=== PATIENT | female | born 1995 | race Hispanic/Latino ===

== ENCOUNTER → 2021-11-27 | Day surgery (SDC) | payer OTHER ==
[~2021-11-27] MED LIST: CYCLOBENZAPRINE10 MG PO; DEXAMETHASONE SOD PHOS INJ 4 MG/ML SDV ONE; FENTANYL CITRATE/PF 100MCG/2 ML INJ ONE; IBUPROFEN200 MG PO; KETOROLAC TROMETHAMINE 30 MG/ML VIAL ONE; LIDOCAINE HCL 2% LOCAL INJ 5 ML SDV VIAL INJ ONE; METOCLOPRAMIDE HCL 10 MG/2ML VIAL ONE; MIDAZOLAM HCL 2 MG/2 ML VIAL ONE; ONDANSETRON HCL INJ 2MG/ML 2ML 2 MG/ML VIAL ONE; POVIDONE IODINE 0.05% 0.05 % ML PO ONE; PROPOFOL IV EMULSION 10 MG/ML 20 ML VIAL ONE; SEVOFLURANE INHAL SOLN 250 ML PEN BTL ONE; ULTRAM50 MG PO
[2021-11-27 14:35] VITALS: BP 119/86
== END | disposition home or self-care (01) ==
LOC: OR 09:31
PROVIDERS: ATTEND Specialist
DX: S52.231A Displaced oblique fracture of shaft of right ulna, initial encounter for closed fracture (principal); V43.52XA Car driver injured in collision with other type car in traffic accident, initial encounter; Y93.89 Activity, other specified; Y92.411 Interstate highway as the place of occurrence of the external cause; F41.9 Anxiety disorder, unspecified; Z01.812 Encounter for preprocedural laboratory examination; Z20.822 Contact with and (suspected) exposure to COVID-19; Z88.5 Allergy status to narcotic agent
CPT/HCPCS: 0223U; 25545; 36415; 81025; C1713 ×3; J0690; J1100; J1885; J2001; J2250; J2405; J2704; J2765; J3010; 76000